=== PATIENT | male | born 1950 | race American Indian/Alaskan Native ===

== ENCOUNTER 2017-05-29 00:33 | Inpatient (IN) | payer BC, MEDICARE ==
[2017-05-29 01:17] LABS: Basophils % (Auto) 0.3 % (0.0-1.8); Hematocrit 42.5 % (35.5-45.6); Hemoglobin 13.7 gm/dl (11.8-15.2); Mean Corpuscular HGB Conc 32 % (32-34); Mean Corpuscular Hemoglobin 29 pg (28-32); Mean Corpuscular Volume 89 fl (84-94); Platelet Count 170 K/mm3 (140-440); Red Blood Count 4.78 M/mm3 (3.65-5.03); Red Cell Distribution Width 13.3 % (13.2-15.2); White Blood Count 9.2 K/mm3 (4.5-11.0)
[2017-05-29 01:42] LABS: Anion Gap 20 mmol/L; BUN/Creatinine Ratio 11; Blood Urea Nitrogen 15 mg/dL (9-20); Calcium 9.4 mg/dL (8.4-10.2); Carbon Dioxide 24 mmol/L (22-30); Chloride 101.5 mmol/L (98-107); Glucose 92 mg/dL (75-100); Potassium 4.7 mmol/L (3.6-5.0); Sodium 141 mmol/L (137-145)
--- NOTE | 2017-05-29 01:50 | XRay Report ---
FINAL REPORT EXAM: XR CHEST ROUTINE 2V HISTORY: chest pain, SOB, cough TECHNIQUE: PA and lateral views of the chest were submitted. FINDINGS: Heart size mediastinum appear normal. The lungs are clear. Pleural fluid is not seen. The bones and soft tissues reveal multilevel disc degeneration in the thoracic spine. IMPRESSION: No active chest disease.
[2017-05-29] MEDS ORDERED: NACL ONE (11:29)
[2017-05-29] MEDS ORDERED: HEPARIN 10,000 UNITS/10 ML IV ONE (11:34)
[2017-05-29] MEDS ORDERED: DULCOLAX PR PRN (11:38)
[2017-05-29] MEDS ORDERED: ZOFRAN IV PRN (11:38)
[2017-05-29] MEDS ORDERED: TYLENOL PO PRN (11:38)
[2017-05-29] MEDS ORDERED: PROVENTIL IH PRN (11:38)
[2017-05-29] MEDS ORDERED: MILK OF MAGNESIA PO PRN (11:38)
[2017-05-29 11:51] LABS: INR 1.08 (0.87-1.13); Partial Thromboplastin Time 30.7 Sec. (24.2-36.6)
--- NOTE | 2017-05-29 12:13 | Cat Scan Report ---
CTA chest: History: Chest pain, elevated d-dimer. Findings: No endobronchial or mediastinal mass. No mediastinal, hilar or axillary adenopathy. No pleural or pericardial effusion. Multiple defects identified in the distal main right and left pulmonary artery with extension to the upper lobe and lower lobe branches . The lung parenchyma appears unremarkable. No consolidation or mass. Impression: Extensive bilateral pulmonary emboli.
--- NOTE | 2017-05-29 12:19 | Emergency Department Report ---
ED General Adult HPI - General Chief complaint: Chest Pain Stated complaint: CP; SOB Time Seen by Provider: 05/29/17 11:16 Source: patient Mode of arrival: Ambulatory Limitations: No Limitations - History of Present Illness Initial comments: Patient states that he went to an emergency department in [place] on May 16 and had a Doppler for leg swelling. He describes the problem as starting in his right heel and moving into his ankle. He is a poor historian. However, it appears quite evident that he has had progressive leg swelling for now at 1-2 weeks. In the intervening time the patient states he has been "working out and doing cardio. By the he noted chest pain and shortness of breath on exertion. However he stated that he had still been doing an hour of cardio up until yesterday. Today he had an episode of recurrent chest pain and shortness of breath. At rest now he is not short of breath and his chest pain has resolved. He does have a report from the hospital in [place] indicating that he had superficial thrombophlebitis on 05/16/2017. He has no prior history of pulmonary embolism. He has no contraindications to anticoagulation. -: Gradual Location: chest, right Radiation: non-radiation Severity scale (0 -10): 7 Quality: other (tightness) Consistency: intermittent Improves with: none Worsens with: none Associated Symptoms: denies other symptoms Treatments Prior to Arrival: none - Related Data Allergies Allergy/AdvReac Type Severity Reaction Status Date / Time quinine Allergy Rash Verified 05/29/17 01:02 ED Review of Systems ROS: Stated complaint: CP; SOB Other details as noted in HPI Constitutional: denies: chills, fever Eyes: denies: eye pain, eye discharge, vision change ENT: denies: ear pain, throat pain Respiratory: shortness of breath. denies: cough, wheezing Cardiovascular: chest pain. denies: palpitations Endocrine: no symptoms reported Gastrointestinal: denies: abdominal pain, nausea, diarrhea Genitourinary: denies: urgency, dysuria Musculoskeletal: denies: back pain, joint swelling, arthralgia Skin: denies: rash, lesions Neurological: denies: headache, weakness, paresthesias Psychiatric: denies: anxiety, depression Hematological/Lymphatic: denies: easy bleeding, easy bruising ED Past Medical Hx - Past Medical History Previous Medical History?: Yes Additional medical history: Lower Leg swelling Apr 2017. 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 Absent: scleral icterus - ENT ENT exam: Present: mucous membranes moist - Neck Neck exam: Present: normal inspection. Absent: tenderness, meningismus - Respiratory Respiratory exam: Present: normal lung sounds bilaterally. Absent: respiratory distress - Cardiovascular Cardiovascular Exam: Present: regular rate, normal rhythm. Absent: systolic murmur, diastolic murmur, rubs, gallop - GI/Abdominal GI/Abdominal exam: Present: soft, normal bowel sounds. Absent: distended, tenderness, guarding, rebound, rigid - Rectal Rectal exam: Present: deferred - Extremities Exam Extremities exam: Present: other (the right leg is swollen to the popliteal fossa. The calf is not tight. There is no compartment signs. Distal pulses are 2+ and 2+ ankle and foot. There is a palpable cord extending into the thigh.) - Back Exam Back exam: Present: normal inspection - Neurological Exam Neurological exam: Present: alert, oriented X3 - Psychiatric Psychiatric exam: Present: normal affect, normal mood - Skin Skin exam: Present: warm, dry, intact, normal color. Absent: rash ED Course Vital Signs 05/29/17 05/29/17 05/29/17 00:36 04:08 10:46 Temperature 98.4 F 97.7 F 97.9 F Pulse Rate 91 H 79 77 Respiratory 20 16 18 Rate Blood Pressure 119/75 Blood Pressure 133/78 [Left] Blood Pressure 114/76 [Right] O2 Sat by Pulse 97 97 94 Oximetry - Reevaluation(s) Reevaluation #1: The patient was deemed very high probability for pulmonary embolism. He was empirically heparinized with heparin standard bolus and dose. A pulmonary angiogram did reveal bilateral distal and extensive Main pulmonary artery emboli. Findings discussed with Dr. Catalan the hospitalist who is already admitted the patient. Page out to Dr. Askew. 05/29/17 12:19 ED Medical Decision Making - Lab Data Result diagrams: 05/29/17 00:58 05/29/17 00:58 Laboratory Results - last 24 hr 05/29/17 05/29/17 05/29/17 00:58 00:58 00:58 WBC 9.2 RBC 4.78 Hgb 13.7 Hct 42.5 MCV 89 MCH 29 MCHC 32 RDW 13.3 Plt Count 170 Lymph % (Auto) 38.8 H [place] % (Auto) 10.8 H Eos % (Auto) 1.0 Baso % (Auto) 0.3 Lymph # 3.6 [place] # 1.0 H Eos # 0.1 Baso # 0.0 Seg Neutrophils % 49.1 Seg Neutrophils # 4.5 PT INR APTT D-Dimer Sodium 141 Potassium 4.7 Chloride 101.5 Carbon Dioxide 24 Anion Gap 20 BUN 15 Creatinine 1.4 Estimated GFR > 60 BUN/Creatinine Ratio 11 Glucose 92 Calcium 9.4 Troponin T < 0.010 NT-Pro-B Natriuret Pep 2078 H 05/29/17 05/29/17 05/29/17 01:04 04:06 08:07 WBC RBC Hgb Hct MCV MCH MCHC RDW Plt Count Lymph % (Auto) [place] % (Auto) Eos % (Auto) Baso % (Auto) Lymph # [place] # Eos # Baso # Seg Neutrophils % Seg Neutrophils # PT INR APTT D-Dimer > 75221 H Sodium Potassium Chloride Carbon Dioxide Anion Gap BUN Creatinine Estimated GFR BUN/Creatinine Ratio Glucose Calcium Troponin T < 0.010 < 0.010 NT-Pro-B Natriuret Pep 05/29/17 11:28 WBC RBC Hgb Hct MCV MCH MCHC RDW Plt Count Lymph % (Auto) [place] % (Auto) Eos % (Auto) Baso % (Auto) Lymph # [place] # Eos # Baso # Seg Neutrophils % Seg Neutrophils # PT 14.6 INR 1.08 APTT 30.7 D-Dimer Sodium Potassium Chloride Carbon Dioxide Anion Gap BUN Creatinine Estimated GFR BUN/Creatinine Ratio Glucose Calcium Troponin T NT-Pro-B Natriuret Pep - EKG Data -: EKG Interpreted by Me EKG shows normal: sinus rhythm, axis, intervals, QRS complexes, ST-T waves Rate: normal - EKG Data Interpretation: nonspecific ST-T wave martha - Radiology Data Radiology results: report reviewed Critical Care Time: Yes Critical care time in (mins) excluding proc time.: 50 Critical care attestation.: If time is entered above; I have spent that time in minutes in the direct care of this critically ill patient, excluding procedure time. ED Disposition Clinical Impression: Subacute massive pulmonary embolism Disposition: [id number] OP ADMIT IP TO THIS HOSP Is pt being admited?: Yes Does the pt Need Aspirin: No Condition: Stable Referrals: PARKER WILDER MD [Other] - 3-5 Days Time of Disposition: 12:21
--- NOTE | 2017-05-29 13:00 | Consultation ---
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 On May 19, patient reports that he had some chest pain and shortness of breath on exertion and now has shortness of breath with chest pain when he walks less than 30 feet which is incapacitating. At rest, he does not feel short of breath nor does he have chest pain. He denies history of hematemesis, hematuria, hematochezia, melena, any recent surgeries within the last year, or any injections at the last year. No prior history of thromboembolic event. CT scan demonstrates significant right heart strain with a right ventricle to left ventricle ratio of 1.4 (0.9 nl) which has been confirmed by echocardiography with a right ventricle mean pressure of aprox 55 per preliminary discussion with technologist. There is a right distal main pulmonary embolism with extension into the lobar pulmonary arteries and some segmental pulmonary arteries, and left-sided lobar pulmonary embolisms with extension into some segmental pulmonary arteries. Elevated BNP of approximately 2000. Past History Past Medical History: other (varicose veins) Past Surgical History: No surgical history Social history: alcohol abuse. denies: smoking, IV drug use Family history: no significant family history Medications and Allergies Allergies Allergy/AdvReac Type Severity Reaction Status Date / Time quinine Allergy Rash Verified 05/29/17 01:02 Active Meds: Active Medications Acetaminophen (Tylenol) 650 mg PO Q4H PRN PRN Reason: Pain MILD(1-3)/Fever >100.5/FLORES Albuterol (Proventil) 2.5 mg IH Q4HRT PRN PRN Reason: Shortness Of Breath Bisacodyl (Dulcolax) 10 mg [place] QDAY PRN PRN Reason: Constipation unrelieved by MOM Heparin Sodium/Sodium Chloride (Heparin/ 0.45% Nacl-25,000 Unit/500 Ml) 25,000 unit in 500 mls @ 29 mls/hr IV TITR RAJANI; 1,450 UNITS/HR PRN Reason: Protocol Magnesium Hydroxide (Milk Of Magnesia) 30 ml PO Q4H PRN PRN Reason: Constipation Ondansetron HCl (Zofran) 4 mg IV Q8H PRN PRN Reason: N/V unrelieved by Reglan Review of Systems All systems: negative (see HPI) Constitutional: no fever Exam - Constitutional Vitals: Temp Pulse Resp BP Pulse Ox 97.9 F 77 18 133/78 94 05/29/17 10:46 05/29/17 10:46 05/29/17 10:46 05/29/17 10:46 05/29/17 10:46 General appearance: Present: mild distress - EENT Eyes: Present: EOM intact ENT: hearing intact - Respiratory Respiratory effort: labored - Extremities Extremity abnormal: edema (right lower extremity) - Psychiatric Psychiatric: appropriate mood/affect, cooperative Results - Labs CBC & Chem 7: 05/29/17 00:58 05/29/17 00:58 Labs: Abnormal lab results 05/29/17 05/29/17 05/29/17 Range/Units 00:58 00:58 01:04 Lymph % (Auto) 38.8 H (13.4-35.0) % [place] % (Auto) 10.8 H (0.0-7.3) % [place] # 1.0 H (0.0-0.8) K/mm3 D-Dimer > 11425 H (0-234) ng/mlDDU NT-Pro-B Natriuret Pep 2078 H (0-900) pg/mL - Imaging and Cardiology CT scan - chest: report reviewed, image reviewed Venous US: image reviewed Assessment and Plan 66-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 Although he tolerates his pulmonary embolism thrombus load well at rest, with minimal exertion he become extremely symptomatic. His deep venous thrombus load is greater in the right lower extremity than the left lower extremity. No proximal DVT component. His pulmonary embolism risk is intermediate-high. His bleeding risk is overall low. I had a long discussion with the patient regarding options of catheter directed thrombolytic therapy vs anticoagulation alone which included the risks, benefits , and alternatives. The patient elected for catheter directed thrombolytics. NPO after MN Continue heparin drip Will bring down tomorrow for catheter directed thrombolytics in the pulmonary arteries
[2017-05-29] MEDS: HEPARIN/ 0.45% NACL-25,000 UNIT/500 ML 25,000 UNIT/500 ML BAG IV SCH (13:20)
--- NOTE | 2017-05-29 15:01 | History and Physical Report ---
History of Present Illness Date of admission: 05/29/17 11:38 Chief complaint: My right lig is swollen, and I cant breathe History of present illness: 66 YO Male with Varicose veins, Superficial thrombophlebitis presents to ED for evaluation. Pt states that he has experienced shortness of breath for the past 1 month with worsening symptoms over the past 10 days. the patient was diagnosed with Right -sided superficial thrombophlebitis of his greater saphenous vein 3 weeks ago. Pt acknowledges chest discomfort and shortness of breath on exertion as well as deep breathing. Pt states that he now has shortness of breath with chest discomfort when he walks, and only able to walk less than 30 feet without stopping due to shortness of breath. Pt denies fever, chills, Palpitations, NVD, Syncope, Hematemesis, hematuria, hematochezia, melena, or recent ill contacts. Pt seen and evaluated in ED and found to have right heart strain and CT Angio chest reveals bilateral PE. IR consulted in ED for EKOS therapy. Pt admitted to telemetry and placed on heparin drip. Past History Past Medical History: other (varicose veins, superficial thrombophlebitis) Past Surgical History: No surgical history, Other (reviewed) Social history: single. denies: smoking, alcohol abuse, prescription drug abuse Family history: no significant family history Medications and Allergies Allergies Allergy/AdvReac Type Severity Reaction Status Date / Time quinine Allergy Rash Verified 05/29/17 01:02 Active Meds: Active Medications Acetaminophen (Tylenol) 650 mg PO Q4H PRN PRN Reason: Pain MILD(1-3)/Fever >100.5/FLORES Albuterol (Proventil) 2.5 mg IH Q4HRT PRN PRN Reason: Shortness Of Breath Bisacodyl (Dulcolax) 10 mg [place] QDAY PRN PRN Reason: Constipation unrelieved by MOM Heparin Sodium/Sodium Chloride (Heparin/ 0.45% Nacl-25,000 Unit/500 Ml) 25,000 unit in 500 mls @ 29 mls/hr IV TITR RAJANI; 1,450 UNITS/HR PRN Reason: Protocol Last Admin: 05/29/17 13:20 Dose: 1,450 units/hr, 29 mls/hr Magnesium Hydroxide (Milk Of Magnesia) 30 ml PO Q4H PRN PRN Reason: Constipation Ondansetron HCl (Zofran) 4 mg IV Q8H PRN PRN Reason: N/V unrelieved by Reglan Review of Systems Constitutional: no weight loss, no weight gain, no fever, no chills Ears, nose, mouth and throat: no ear pain, no ear discharge, no tinnitis, no decreased hearing, no nose pain Cardiovascular: shortness of breath, dyspnea on exertion, leg edema, no chest pain Respiratory: shortness of breath, dyspnea on exertion, pleurisy, pain on inspiration Gastrointestinal: no abdominal pain, no nausea, no vomiting, no diarrhea Genitourinary Male: no dysuria, no hematuria, no flank pain, no discharge Rectal: no pain, no incontinence, no bleeding Musculoskeletal: no neck stiffness, no neck pain, no shooting arm pain, no arm numbness/tingling, no low back pain Integumentary: no rash, no pruritis, no redness, no sores Neurological: no head injury, no transient paralysis, no paralysis, no weakness , no parathesias, no numbness Psychiatric: no anxiety, no memory loss, no change in sleep habits, no sleep disturbances, no insomnia, no hypersomnia Endocrine: no cold intolerance, no heat intolerance, no polyphagia, no excessive thirst, no polydipsia Hematologic/Lymphatic: no easy bruising, no easy bleeding Allergic/Immunologic: no urticaria, no allergic rhinitis, no wheezing Exam - Constitutional Vitals: Temp Pulse Resp BP Pulse Ox 97.9 F 77 18 133/78 94 05/29/17 10:46 05/29/17 10:46 05/29/17 10:46 05/29/17 10:46 05/29/17 10:46 General appearance: Present: mild distress - EENT Eyes: Present: PERRL ENT: hearing intact, clear oral mucosa - Neck Neck: Present: supple, normal ROM - Respiratory Respiratory effort: normal Respiratory: bilateral: diminished, rhonchi - Cardiovascular Heart Sounds: Present: S1 & S2. Absent: rub, click - Extremities Extremities: pulses symmetrical, No edema Extremity abnormal: edema, erythema, tenderness, other (RLE ) Peripheral Pulses: within normal limits - Abdominal General gastrointestinal: Present: soft, non-tender, non-distended, normal bowel sounds Male genitourinary: Present: normal - Integumentary Integumentary: Present: clear, warm, dry - Musculoskeletal Musculoskeletal: gait normal, strength equal bilaterally - Psychiatric Psychiatric: appropriate mood/affect, intact judgment & insight - Neurologic Neurologic: CNII-XII intact, moves all extremities Results - Labs CBC & Chem 7: 05/29/17 00:58 05/29/17 00:58 Labs: Abnormal lab results 05/29/17 05/29/17 05/29/17 Range/Units 00:58 00:58 01:04 Lymph % (Auto) 38.8 H (13.4-35.0) % [place] % (Auto) 10.8 H (0.0-7.3) % [place] # 1.0 H (0.0-0.8) K/mm3 D-Dimer > 21753 H (0-234) ng/mlDDU NT-Pro-B Natriuret Pep 2078 H (0-900) pg/mL Assessment and Plan - Patient Problems (1) Subacute massive pulmonary embolism Current Visit: Yes Status: Acute Plan to address problem: Therapeutic Anticoagulation with heparin drip, IR consulted pending EKOS in AM, supplemental oxygen, nebulizer therpay, pain control (2) CHF (congestive heart failure) Current Visit: Yes Status: Suspected Qualifiers: Congestive heart failure type: systolic Congestive heart failure chronicity : acute Qualified Code(s): I50.21 - Acute systolic (congestive) heart failure Plan to address problem: Suspect secondary to right heart strain and PE, Echo, treat submassive PE (3) Acute respiratory failure Current Visit: Yes Status: Acute Qualifiers: Respiratory failure complication: hypoxia Qualified Code(s): J96.01 - Acute respiratory failure with hypoxia Plan to address problem: supplemental oxygen, nebs, incentive spirometry, supportive care, treat PE. (4) DVT prophylaxis Current Visit: Yes Status: Acute
[2017-05-30] MEDS ORDERED: MORPHINE IV PRN ×2 (02:16→10:04)
[2017-05-30] MEDS: HEPARIN/ 0.45% NACL-25,000 UNIT/500 ML 25,000 UNIT/500 ML BAG IV SCH (06:06)
[2017-05-30] MEDS ORDERED: NACL 0.9% 1000 ML 1,000 ML ONE ×2 (09:55→10:44)
[2017-05-30] MEDS ORDERED: HEPARIN/NS 5000 UNIT/500ML(CATH LAB) 1,000 ML IR ONE (09:55)
[2017-05-30] MEDS ORDERED: HEPARIN/ 0.45% NACL-25,000 UNIT/500 ML 25,000 UNIT/500 ML BAG ONE (09:55)
[2017-05-30] MEDS ORDERED: CATHFLO ONE ×2 (09:56→10:51)
[2017-05-30] MEDS ORDERED: WATER FOR INJ (PF) 10 ML ONE ×2 (09:57)
[2017-05-30] MEDS ORDERED: ZOFRAN IV PRN (10:04)
[2017-05-30] MEDS: SUBLIMAZE ONE ×2 (10:27→10:33)
[2017-05-30] MEDS: XYLOCAINE 2% INFILTRATI ONE ×2 (10:27→10:40)
[2017-05-30] MEDS: VERSED ONE ×2 (10:27→10:33)
[2017-05-30] MEDS: HEPARIN 10,000 UNITS/10 ML ONE ×3 (10:57→11:21)
[2017-05-30] MEDS ORDERED: HEPARIN/ 0.45% NACL-25,000 UNIT/500 ML 25,000 UNIT/500 ML BAG SHEATH SCH ×2 (11:00)
[2017-05-30] MEDS ORDERED: NACL 0.9% 1000 ML 1,000 ML SHEATH SCH ×2 (11:00)
[2017-05-30] MEDS ORDERED: NACL 0.9% 1000 ML 1,000 ML EKOSCLUMEN SCH ×2 (11:00)
[2017-05-30] MEDS ORDERED: NACL 0.9% 1000 ML 1,000 ML IV SCH (11:00)
[2017-05-30] MEDS: CATHFLO 10 MG in NACL 0.9% 250ML 250 ML EKOSDLUMEN SCH (11:27)
[2017-05-30] MEDS: CATHFLO 10 MG in NACL 0.9% 250ML 250 ML IV SCH (11:28)
[2017-05-30 11:40] LABS: Basophils % (Auto) 0.5 % (0.0-1.8); Eosinophils % (Auto) 0.7 % (0.0-4.3); Hematocrit 38.3 % (35.5-45.6); Hemoglobin 12.7 gm/dl (11.8-15.2); Mean Corpuscular HGB Conc 33 % (32-34); Mean Corpuscular Hemoglobin 29 pg (28-32); Mean Corpuscular Volume 88 fl (84-94); Platelet Count 157 K/mm3 (140-440); Red Blood Count 4.37 M/mm3 (3.65-5.03); White Blood Count 7.8 K/mm3 (4.5-11.0)
[2017-05-30 11:49] LABS: INR 1.12 (0.87-1.13)
[2017-05-30 11:52] LABS: Anion Gap 17 mmol/L; BUN/Creatinine Ratio 11; Blood Urea Nitrogen 13 mg/dL (9-20); Calcium 8.6 mg/dL (8.4-10.2); Carbon Dioxide 26 mmol/L (22-30); Glucose 85 mg/dL (75-100); Potassium 4.4 mmol/L (3.6-5.0); Sodium 139 mmol/L (137-145)
--- NOTE | 2017-05-30 12:00 | Operative Report ---
Operative Report Operative Report: EXAM: 1. Ultrasound guided access of the left common femoral vein 2. Ultrasound guided access of the left common femoral vein 3. Selection of the right atrium, right ventricle, main pulmonary artery, left main pulmonary artery, and left lobar pulmonary artery 4. Left upper and lower lobar pulmonary angiography 5. Selection and angiography of a segmental branch of the left lower lobar pulmonary artery 6. Fluoroscopic guided placement of a 106 cm x 12 cm infusion length EKOS thrombolytic catheter in the left lower lobar segmental pulmonary artery 7. Selection of the right atrium, right ventricle, main pulmonary artery, and right interlobar pulmonary artery 8. Right interlobar pulmonary angiography 9. Selection of the right lower lobar pulmonary artery and a segmental branch of the right lower lobar pulmonary artery 10. Angiography of a segmental branch of the right lower lobar pulmonary artery 11. Fluoroscopic guided placement of a 106 cm x 12 cm infusion length EKOS thrombolytic catheter in the right lower lobar segmental pulmonary artery DATE: 05/30/17 PAPER RECLAIMING MACHINE OPERATOR: MARTHA FISH MD INDICATION: Submassive pulmonary embolism with right heart strain on CT with shortness of breath and elevated BNP. MEDICATIONS: Continuous cardiopulmonary monitoring was performed during this procedure. Please see nursing report for full details. DEVICES: 12 cm x 106 cm EKOS catheter placement in the left lower lobe segmental pulmonary artery 12 cm x 106 cm EKOS catheter placement in the right lower lobe segmental pulmonary artery CONTRAST: Please see nursing report. PROCEDURE: The risks, benefits, and alternatives were discussed; written informed consent was obtained. The patient was prepped and draped in a sterile fashion and both groins were prepped and draped in a sterile fashion. The left common femoral vein was patent on ultrasound evaluation. The left common femoral vein was assessed under ultrasound guidance, and a 21- gauge micropuncture needle was advanced into the left common femoral vein. 0.018 inch wire was advanced into the needle and into the inferior vena cava. Needle was exchanged for micropuncture transitional dilator. The left common femoral vein was assessed again under ultrasound guidance, and a 21-gauge micropuncture needle was advanced into the left common femoral vein. 0.018 inch wire was advanced into the needle and into the inferior vena cava. Needle was exchanged for micropuncture transitional dilator. Both access sites were then exchanged for 6 [place] sheaths after 0.035 wire were passed into the inferior vena cava. Through the first left-sided sheath, a JR4 catheter was advanced over the Bentson wire and was used to successfully cannulated the right atrium. Then the catheter was used to select the right ventricle. Catheter was then used to select the main pulmonary artery. The catheter was then used to select the left main pulmonary artery and the upper lower lobe lobar pulmonary artery. Digital angiography was performed demonstrating a nonocclusive thrombus in the lobar pulmonary artery with segmental extension. The left main was selected demonstrating inflow artifact without a saddle pulmonary embolism. Catheter was exchanged for a vertebral catheter and the left lower lobar pulmonary artery was then selected. Digital angiography was performed demonstrating a nonocclusive thrombus in the distal left lobar artery. Angiography was repeated at multiple positions in the left lobar pulmonary artery demonstrating a large nearly occlusive thrombus in the proximal left lobar artery with some segmentals with nonocclusive thrombus, and subsegmental arteries which were patent. The segmental arteries with nonocclusive thrombus were selected and angiography was performed confirming position. [place] wire was advanced into the vessel and catheter was exchanged for a 6 [place] EKOS thrombolytic catheter. Wire was then exchanged for the EKOS wire. Contrast was injected to the thrombolytic catheter confirming placement in a segmental branch of the left lower lobe pulmonary artery. Thrombolytic catheter was flushed with saline. EKOS catheter was primed with 4 mg of TPA. This sheath was flushed and then primed with 1500 units of heparin. Through the second left-sided sheath, a JR4 catheter was advanced over the Bentson wire and was used to successfully cannulated the right atrium. Then the catheter was used to select the right ventricle. Catheter was then used to select the main pulmonary artery. The catheter was then used to select the right middle and lower interlobar pulmonary artery. Digital angiography was performed demonstrating a large near occlusive thrombus in the right lobar pulmonary arteries extending into the middle and lower lobar vessels. The segmental vessels were then selected demonstrating some which were patent, and some which had nonocclusive thrombus. The catheter was then used to select the right lower lobe lobar branch and then a segmental branch with nonocclusive thrombus. Digital angiography was performed confirming placement in a segmental branch of the right lower lobar pulmonary artery. [place] wire was advanced into the vessel and catheter was exchanged for a 6 [place] EKOS thrombolytic catheter. Wire was then exchanged for the EKOS wire. Contrast was injected to the thrombolytic catheter confirming placement in a segmental branch of the left lower lobe pulmonary artery. Thrombolytic catheter was flushed with saline. EKOS catheter was primed with 4 mg of TPA. This sheath was flushed and then primed with 1500 units of heparin. EKOS catheters were secured in 2-0 Ethilon sutures were used to secure this sheath. Steri-Strips were used to connect the catheters with the sheaths. The EKOS catheters were secured in a sterile fashion with multiple Tegaderms and 4 x 4's. FINDINGS: 1. Please see procedure note above IMPRESSION: Successful pulmonary angiograms and pulmonary artery selections for thrombolytic therapy. Successful placement of EKOS catheters in the right lower lobe segmental/ subsegmental pulmonary artery and left lower lobe segmental/subsegmental pulmonary artery.
--- NOTE | 2017-05-30 15:04 | Vascular Lab Report ---
LOWER EXTREMITY VENOUS DUPLEX: REASON FOR EXAM: Deep venous thrombosis. COMMENTS ON THE RIGHT: There is an acute occlusive deep venous thrombus in the right femoral vein extending from the femoral vein origin into the popliteal vein and into the proximal tibial veins and peroneal veins. There is a thrombosed superficial venous varicosity in the right mid calf. The remaining veins visualized are freely compressible without evidence of internal echogenicity. Spontaneous and phasic flow is diminished proximally. COMMENTS ON THE LEFT: There is an acute occlusive deep venous thrombus in the left lower femoral vein with extension into the popliteal vein and into the proximal tibial veins. The remaining veins visualized are freely compressible without evidence of internal echogenicity. Spontaneous and phasic flow is diminished proximally. IMPRESSION: Bilateral lower extremity acute deep venous thrombosis. Right midcalf superficial venous thrombus in a mid calf varicosity.
[2017-05-30 16:00] LABS: Basophils % (Auto) 0.4 % (0.0-1.8); Hemoglobin 13.7 gm/dl (11.8-15.2); Mean Corpuscular HGB Conc 33 % (32-34); Mean Corpuscular Hemoglobin 30 pg (28-32); Mean Corpuscular Volume 89 fl (84-94); Platelet Count 155 K/mm3 (140-440); Red Blood Count 4.62 M/mm3 (3.65-5.03); White Blood Count 8.2 K/mm3 (4.5-11.0)
--- NOTE | 2017-05-30 16:32 | Consultation ---
History of Present Illness Consult date: 05/30/17 Reason for consult: dyspnea History of present illness: 66 YO Male with Varicose veins, Superficial thrombophlebitis presents to ED for evaluation. Pt states that he has experienced shortness of breath for the past 1 month with worsening symptoms over the past 10 days. the patient was diagnosed with Right -sided superficial thrombophlebitis of his greater saphenous vein 3 weeks ago. Pt acknowledges chest discomfort and shortness of breath on exertion as well as deep breathing. Pt states that he now has shortness of breath with chest discomfort when he walks, and only able to walk less than 30 feet without stopping due to shortness of breath. Pt denies fever, chills, Palpitations, NVD, Syncope, Hematemesis, hematuria, hematochezia, melena, or recent ill contacts. Pt seen and evaluated in ED and found to have right heart strain and CT Angio chest reveals bilateral PE. IR consulted in ED for EKOS therapy. Pt admitted to ICU post EKOS. Past History Past Medical History: other (varicose veins, superficial thrombophlebitis) Past Surgical History: No surgical history, Other (reviewed) Social history: single. denies: smoking, alcohol abuse, prescription drug abuse Family history: no significant family history Medications and Allergies Allergies Allergy/AdvReac Type Severity Reaction Status Date / Time quinine Allergy Rash Verified 05/29/17 01:02 Home Medications Medication Instructions Recorded Confirmed Last Taken Type Reumofan Plus 1 tab PO PRN 05/29/17 Unknown History Active Meds: Active Medications Acetaminophen (Tylenol) 650 mg PO Q4H PRN PRN Reason: Pain MILD(1-3)/Fever >100.5/FLORES Acetaminophen/Hydrocodone Bitart ([place] 5/325) 2 each PO Q6H PRN PRN Reason: Pain, Moderate (4-6) Albuterol (Proventil) 2.5 mg IH Q4HRT PRN PRN Reason: Shortness Of Breath Bisacodyl (Dulcolax) 10 mg MT QDAY PRN PRN Reason: Constipation unrelieved by MOM Alteplase, Recombinant 10 mg/ (Sodium Chloride) 250 mls @ 10 mls/hr EKOSDLUMEN DIRECT RAJANI Last Admin: 05/30/17 11:27 Dose: 0 mls Alteplase, Recombinant 10 mg/ (Sodium Chloride) 250 mls @ 10 mls/hr IV DIRECT RAJANI Last Admin: 05/30/17 11:28 Dose: 0 mls Heparin Sodium/Sodium Chloride (Heparin/ 0.45% Nacl-25,000 Unit/500 Ml) 25,000 unit in 500 mls @ 10 mls/hr SHEATH DIRECT RAJANI; 500 UNITS/HR PRN Reason: Protocol Last Admin: 05/30/17 11:27 Dose: 0 mls Heparin Sodium/Sodium Chloride (Heparin/ 0.45% Nacl-25,000 Unit/500 Ml) 25,000 unit in 500 mls @ 10 mls/hr SHEATH DIRECT RAJANI; 500 UNITS/HR PRN Reason: Protocol Last Admin: 05/30/17 11:27 Dose: 0 mls Sodium Chloride (Nacl 0.9% 1000 Ml) 1,000 mls @ 30 mls/hr IV DIRECT RAJANI Sodium Chloride (Nacl 0.9% 1000 Ml) 1,000 mls @ 30 mls/hr SHEATH DIRECT RAJANI Last Admin: 05/30/17 11:26 Dose: 0 mls Sodium Chloride (Nacl 0.9% 1000 Ml) 1,000 mls @ 35 mls/hr EKOSCLUMEN DIRECT RAJANI Sodium Chloride (Nacl 0.9% 1000 Ml) 1,000 mls @ 30 mls/hr SHEATH DIRECT RAJANI Last Admin: 05/30/17 11:26 Dose: 0 mls Sodium Chloride (Nacl 0.9% 1000 Ml) 1,000 mls @ 35 mls/hr EKOSCLUMEN DIRECT RAJANI Magnesium Hydroxide (Milk Of Magnesia) 30 ml PO Q4H PRN PRN Reason: Constipation Morphine Sulfate (Morphine) 2 mg IV Q4H PRN PRN Reason: Pain, Moderate (4-6) Morphine Sulfate (Morphine) 4 mg IV Q4H PRN PRN Reason: Pain , Severe (7-10) Ondansetron HCl (Zofran) 4 mg IV Q8H PRN PRN Reason: Nausea And Vomiting Review of Systems Cardiovascular: shortness of breath, dyspnea on exertion Musculoskeletal: other (right lower extremity discomfort) Physical Examination Vital signs: Vital Signs Temp Pulse Resp BP Pulse Ox 98.4 F 91 H 20 114/76 97 05/29/17 00:36 05/29/17 00:36 05/29/17 00:36 05/29/17 00:36 05/29/17 00:36 General appearance: no acute distress, alert, other (muscular well-built) ENT: other (severely crowded oropharynx Mallampati class IV) Neck: supple, no JVD Ascultation: Bilateral: clear Cardiovascular: regular rate and rhythm Gastrointestinal: normoactive bowel sounds, soft, non-tender Integumentary: normal Extremities: other (EKOS catheter) Musculoskeletal: no deformities normal mental status, non-focal exam Results - Laboratory Findings CBC and BMP: 05/30/17 15:42 05/30/17 11:14 PT/INR, D-dimer PT 15.0 Sec. (12.2-14.9) H 05/30/17 11:14 INR 1.12 (0.87-1.13) 05/30/17 11:14 D-Dimer > 85603 ng/mlDDU (0-234) H 05/29/17 01:04 Abnormal lab findings: Abnormal Labs 05/29/17 05/29/17 05/29/17 00:58 00:58 01:04 RDW Lymph % (Auto) 38.8 H [place] % (Auto) 10.8 H [place] # 1.0 H PT APTT Fibrinogen D-Dimer > 86623 H NT-Pro-B Natriuret Pep 2078 H 05/30/17 05/30/17 05/30/17 11:14 11:14 15:42 RDW 13.0 L 13.0 L Lymph % (Auto) [place] % (Auto) 9.5 H 9.6 H [place] # PT 15.0 H APTT 198.0 H* Fibrinogen D-Dimer NT-Pro-B Natriuret Pep 05/30/17 15:42 RDW Lymph % (Auto) [place] % (Auto) [place] # PT APTT Fibrinogen 526 H D-Dimer NT-Pro-B Natriuret Pep - Diagnostic Findings Chest x-ray: report reviewed (multiple bilateral pulmonary emboli) CT scan - chest: report reviewed U/S of Legs: report reviewed (bilateral DVT) Assessment and Plan Impression: Bilateral extensive pulmonary embolism Bilateral lower extremity DVT Acute pulmonary hypertension secondary to pulmonary embolism Body habitus suspicious of sleep apnea syndrome Recommendation: Continue with EKOS Anticoagulation for next 6-12 months Total critical care time 33 minutes
[2017-05-30] MEDS: NORCO 5/325 PO PRN (16:37)
[2017-05-30 20:36] LABS: Basophils % (Auto) 0.5 % (0.0-1.8); Eosinophils % (Auto) 1.3 % (0.0-4.3); Hematocrit 38.8 % (35.5-45.6); Hemoglobin 13.1 gm/dl (11.8-15.2); Mean Corpuscular HGB Conc 34 % (32-34); Mean Corpuscular Hemoglobin 30 pg (28-32); Mean Corpuscular Volume 88 fl (84-94); Platelet Count 148 K/mm3 (140-440); Red Blood Count 4.41 M/mm3 (3.65-5.03); Red Cell Distribution Width 12.9 % (13.2-15.2); White Blood Count 7.8 K/mm3 (4.5-11.0)
--- NOTE | 2017-05-30 20:49 | Progress Note ---
Assessment and Plan Assessment and plan: 66 YO Male with Varicose veins, Superficial thrombophlebitis presents to ED for evaluation. Pt states that he has experienced shortness of breath for the past 1 month with worsening symptoms over the past 10 days. the patient was diagnosed with Right -sided superficial thrombophlebitis of his greater saphenous vein 3 weeks ago. Pt acknowledges chest discomfort and shortness of breath on exertion as well as deep breathing. Pt states that he now has shortness of breath with chest discomfort when he walks, and only able to walk less than 30 feet without stopping due to shortness of breath. Pt denies fever, chills, Palpitations, NVD, Syncope, Hematemesis, hematuria, hematochezia, melena, or recent ill contacts. Pt seen and evaluated in ED and found to have right heart strain and CT Angio chest reveals bilateral PE. IR consulted in ED for EKOS therapy. Pt admitted to telemetry and placed on heparin drip. (1) Subacute massive pulmonary embolism with heart strain Therapeutic Anticoagulation with heparin drip, EKOS initiated s.p thrombolytic therapy, supplemental oxygen, nebulizer therpay, pain control (2) Acute Diastolic CHF (congestive heart failure) Suspect secondary to right heart strain and PE, Echo, treat submassive PE (3) Acute respiratory failure supplemental oxygen, nebs, incentive spirometry, supportive care, treat PE. (4) Acute Pulmonary Hypertension Secondary to Pulmonary Embolism Anticipate improvement following thrombolysis (5) DVT prophylaxis Current Visit: Yes Status: Acute History Interval history: Patient seen and examined, lying comfortable in the ICU, denies any chest pain, nausea, vomiting. reports some abdominal pain but improving according to patient since admission. Hospitalist Physical - Physical exam Narrative exam: General appearance: Present: in no acute distress - EENT Eyes: Present: PERRL ENT: hearing intact, clear oral mucosa - Neck Neck: Present: supple, normal ROM - Respiratory Respiratory effort: normal Respiratory: bilateral: diminished - Cardiovascular Heart Sounds: Present: S1 & S2. Absent: rub, click - Extremities Extremities: pulses symmetrical, No edema Extremity abnormal: edema, erythema, tenderness, other (RLE ) Peripheral Pulses: within normal limits - Abdominal General gastrointestinal: Present: soft, non-tender, non-distended, normal bowel sounds Male genitourinary: Present: normal - Integumentary Integumentary: Present: clear, warm, dry - Musculoskeletal Musculoskeletal: gait normal, strength equal bilaterally - Psychiatric Psychiatric: appropriate mood/affect, intact judgment & insight - Neurologic Neurologic: CNII-XII intact, moves all extremities - Constitutional Vitals: Temp Pulse Resp BP Pulse Ox 98.2 F 84 21 120/80 95 05/30/17 19:40 05/30/17 19:30 05/30/17 19:30 05/30/17 19:30 05/30/17 19:51 General appearance: Present: mild distress Results - Labs CBC & Chem 7: 05/31/17 03:20 05/31/17 03:20 Labs: Laboratory Last Values WBC 8.2 K/mm3 (4.5-11.0) 05/30/17 15:42 RBC 4.62 M/mm3 (3.65-5.03) 05/30/17 15:42 Hgb 13.7 gm/dl (11.8-15.2) 05/30/17 15:42 Hct 41.0 % (35.5-45.6) 05/30/17 15:42 MCV 89 fl (84-94) 05/30/17 15:42 MCH 30 pg (28-32) 05/30/17 15:42 MCHC 33 % (32-34) 05/30/17 15:42 RDW 13.0 % (13.2-15.2) L 05/30/17 15:42 Plt Count 155 K/mm3 (140-440) 05/30/17 15:42 Lymph % (Auto) 28.6 % (13.4-35.0) 05/30/17 15:42 [place] % (Auto) 9.6 % (0.0-7.3) H 05/30/17 15:42 Eos % (Auto) 1.0 % (0.0-4.3) 05/30/17 15:42 Baso % (Auto) 0.4 % (0.0-1.8) 05/30/17 15:42 Lymph # 2.3 K/mm3 (1.2-5.4) 05/30/17 15:42 [place] # 0.8 K/mm3 (0.0-0.8) 05/30/17 15:42 Eos # 0.1 K/mm3 (0.0-0.4) 05/30/17 15:42 Baso # 0.0 K/mm3 (0.0-0.1) 05/30/17 15:42 Seg Neutrophils % 60.4 % (40.0-70.0) 05/30/17 15:42 Seg Neutrophils # 4.9 K/mm3 (1.8-7.7) 05/30/17 15:42 PT 15.0 Sec. (12.2-14.9) H 05/30/17 11:14 INR 1.12 (0.87-1.13) 05/30/17 11:14 APTT 198.0 Sec. (24.2-36.6) H* 05/30/17 11:14 Fibrinogen 526 mg/dl (211-480) H 05/30/17 15:42 D-Dimer > 07433 ng/mlDDU (0-234) H 05/29/17 01:04 Heparin Anti-Xa Level 0.33 U.I./ml (0.3-0.7) 05/30/17 15:42 Sodium 139 mmol/L (137-145) 05/30/17 11:14 Potassium 4.4 mmol/L (3.6-5.0) 05/30/17 11:14 Chloride 100.0 mmol/L (98-107) 05/30/17 11:14 Carbon Dioxide 26 mmol/L (22-30) 05/30/17 11:14 Anion Gap 17 mmol/L 05/30/17 11:14 BUN 13 mg/dL (9-20) 05/30/17 11:14 Creatinine 1.2 mg/dL (0.8-1.5) 05/30/17 11:14 Estimated GFR > 60 ml/min 05/30/17 11:14 BUN/Creatinine Ratio 11 % 05/30/17 11:14 Glucose 85 mg/dL (75-100) 05/30/17 11:14 Calcium 8.6 mg/dL (8.4-10.2) 05/30/17 11:14 Troponin T < 0.010 ng/mL (0.00-0.029) 05/29/17 08:07 NT-Pro-B Natriuret Pep 2078 pg/mL (0-900) H 05/29/17 00:58 Blood Type B NEGATIVE 05/30/17 11:14 Antibody Screen Negative 05/30/17 11:14
[2017-05-31] MEDS: NORCO 5/325 PO PRN ×3 (00:31→18:44)
[2017-05-31 03:41] LABS: Basophils % (Auto) 0.5 % (0.0-1.8); Eosinophils % (Auto) 2.3 % (0.0-4.3); Hematocrit 39.2 % (35.5-45.6); Hemoglobin 13.1 gm/dl (11.8-15.2); Mean Corpuscular HGB Conc 34 % (32-34); Mean Corpuscular Hemoglobin 30 pg (28-32); Mean Corpuscular Volume 88 fl (84-94); Platelet Count 145 K/mm3 (140-440); Red Blood Count 4.45 M/mm3 (3.65-5.03); Red Cell Distribution Width 12.9 % (13.2-15.2); White Blood Count 6.9 K/mm3 (4.5-11.0)
[2017-05-31 04:02] LABS: Anion Gap 18 mmol/L; BUN/Creatinine Ratio 14; Blood Urea Nitrogen 14 mg/dL (9-20); Calcium 8.4 mg/dL (8.4-10.2); Carbon Dioxide 24 mmol/L (22-30); Chloride 97.5 mmol/L (98-107); Glucose 96 mg/dL (75-100); Potassium 4.3 mmol/L (3.6-5.0); Sodium 135 mmol/L (137-145)
[2017-05-31] MEDS: CATHFLO 10 MG in NACL 0.9% 250ML 250 ML EKOSDLUMEN SCH (10:29)
[2017-05-31] MEDS: CATHFLO 10 MG in NACL 0.9% 250ML 250 ML IV SCH (10:45)
[2017-05-31] MEDS: ELIQUIS PO SCH ×2 (12:34→21:01)
--- NOTE | 2017-05-31 12:48 | Progress Note ---
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 Status post thrombolytic therapy to the pulmonary arteries. The thrombolytic catheters removed at bedside. Discussed plan with nurse. The patient will be started on Eliquis 10 mg PO BID , and in 2 hrs the venous sheaths can be removed. Patient will then need to be supine for 4 hours. Afterwards, patient can ambulate as needed and be transferred out of the ICU. Eliquis 10 mg PO BID x 1 week, then Eliquis 5 mg PO BID afterwards. Time course per pulmonology. Subjective Date of service: 05/31/17 Interval history: Tolerated pulmonary artery thrombolysis without issue. Breathing well. Objective - Constitutional Vitals: Vital Signs - 12hr 05/31/17 05/31/17 05/31/17 00:50 01:00 01:10 Temperature Pulse Rate 78 76 73 Respiratory 19 16 17 Rate Blood Pressure 114/71 114/71 116/71 O2 Sat by Pulse 96 90 92 Oximetry 05/31/17 05/31/17 05/31/17 01:20 01:30 01:41 Temperature Pulse Rate 74 75 75 Respiratory 14 15 15 Rate Blood Pressure 111/64 111/64 111/64 O2 Sat by Pulse 94 93 93 Oximetry 05/31/17 05/31/17 05/31/17 01:51 02:00 02:11 Temperature Pulse Rate 74 73 73 Respiratory 14 14 14 Rate Blood Pressure 104/64 103/66 118/49 O2 Sat by Pulse 95 94 94 Oximetry 05/31/17 05/31/17 05/31/17 02:21 02:30 02:41 Temperature Pulse Rate 74 75 67 Respiratory 15 13 16 Rate Blood Pressure 102/68 105/64 105/64 O2 Sat by Pulse 94 94 93 Oximetry 05/31/17 05/31/17 05/31/17 02:51 03:00 03:10 Temperature Pulse Rate 69 71 71 Respiratory 16 14 15 Rate Blood Pressure 106/68 109/71 109/71 O2 Sat by Pulse 97 96 92 Oximetry 05/31/17 05/31/17 05/31/17 03:20 03:30 03:38 Temperature 98.1 F Pulse Rate 75 71 Respiratory 20 16 Rate Blood Pressure 106/68 112/73 O2 Sat by Pulse 96 95 Oximetry 05/31/17 05/31/17 05/31/17 03:40 03:50 04:00 Temperature Pulse Rate 71 70 69 Respiratory 16 17 16 Rate Blood Pressure 112/73 115/73 115/73 O2 Sat by Pulse 95 95 94 Oximetry 05/31/17 05/31/17 05/31/17 04:10 04:20 04:30 Temperature Pulse Rate 70 70 73 Respiratory 14 15 14 Rate Blood Pressure 106/71 112/70 112/70 O2 Sat by Pulse 94 94 95 Oximetry 05/31/17 05/31/17 05/31/17 04:40 04:50 05:00 Temperature Pulse Rate 69 68 70 Respiratory 12 15 16 Rate Blood Pressure 109/71 116/74 116/74 O2 Sat by Pulse 97 95 92 Oximetry 05/31/17 05/31/17 05/31/17 05:10 05:20 05:23 Temperature Pulse Rate 70 72 Respiratory 15 17 16 Rate Blood Pressure 121/74 111/72 O2 Sat by Pulse 93 95 98 Oximetry 05/31/17 05/31/17 05/31/17 05:30 05:41 05:51 Temperature Pulse Rate 70 70 71 Respiratory 18 18 15 Rate Blood Pressure 115/74 115/74 116/74 O2 Sat by Pulse 95 93 94 Oximetry 05/31/17 05/31/17 05/31/17 06:00 06:11 06:21 Temperature Pulse Rate 72 71 74 Respiratory 15 16 14 Rate Blood Pressure 115/78 115/78 116/72 O2 Sat by Pulse 96 95 96 Oximetry 05/31/17 05/31/17 05/31/17 06:30 06:40 06:50 Temperature Pulse Rate 73 71 71 Respiratory 16 18 15 Rate Blood Pressure 116/72 117/71 116/72 O2 Sat by Pulse 95 92 94 Oximetry 05/31/17 05/31/17 05/31/17 07:00 07:10 07:20 Temperature Pulse Rate 71 70 73 Respiratory 16 14 16 Rate Blood Pressure 116/72 115/73 115/80 O2 Sat by Pulse 95 96 95 Oximetry 05/31/17 05/31/17 05/31/17 07:30 07:40 07:50 Temperature Pulse Rate 72 71 74 Respiratory 17 16 18 Rate Blood Pressure 115/80 126/79 126/79 O2 Sat by Pulse 95 94 94 Oximetry 05/31/17 05/31/17 05/31/17 08:00 08:10 08:20 Temperature 97.8 F Pulse Rate 73 74 76 Respiratory 12 18 14 Rate Blood Pressure 126/79 122/75 139/77 O2 Sat by Pulse 97 95 96 Oximetry 05/31/17 05/31/17 05/31/17 08:30 08:40 08:52 Temperature Pulse Rate 77 72 Respiratory 17 19 Rate Blood Pressure 122/75 124/77 O2 Sat by Pulse 96 94 94 Oximetry General appearance: Present: no acute distress - EENT Eyes: EOM intact ENT: hearing intact - Respiratory Respiratory effort: normal Extremities: normal temperature, normal color Extremity abnormal: other (bandaged left leg thrombolytic catheters) - Gastrointestinal General gastrointestinal: Present: soft - Psychiatric Psychiatric: appropriate mood/affect, cooperative - Labs CBC & Chem 7: 05/31/17 03:20 05/31/17 03:20 Labs: Abnormal lab results 05/30/17 05/30/17 05/30/17 Range/Units 15:42 15:42 21:15 RDW 13.0 L 12.9 L (13.2-15.2) % [place] % (Auto) 9.6 H 8.9 H (0.0-7.3) % Fibrinogen 526 H (211-480) mg/dl Heparin Anti-Xa Level (0.3-0.7) U.I./ml Sodium (137-145) mmol/L Chloride (98-107) mmol/L 05/30/17 05/31/17 05/31/17 Range/Units 21:15 03:20 03:20 RDW 12.9 L (13.2-15.2) % [place] % (Auto) 10.9 H (0.0-7.3) % Fibrinogen 532 H 532 H (211-480) mg/dl Heparin Anti-Xa Level 0.26 L 0.19 L (0.3-0.7) U.I./ml Sodium (137-145) mmol/L Chloride (98-107) mmol/L 05/31/17 Range/Units 03:20 RDW (13.2-15.2) % [place] % (Auto) (0.0-7.3) % Fibrinogen (211-480) mg/dl Heparin Anti-Xa Level (0.3-0.7) U.I./ml Sodium 135 L (137-145) mmol/L Chloride 97.5 L (98-107) mmol/L
--- NOTE | 2017-05-31 16:20 | Progress Note ---
Assessment and Plan Impression: Bilateral extensive pulmonary embolism Bilateral lower extremity DVT Acute pulmonary hypertension secondary to pulmonary embolism Body habitus suspicious of sleep apnea syndrome Recommendation: EKOS discontinued per vascular Anticoagulation for next 6-12 months with Eliquis Possible transfer out of ICU Consider repeat echo in few days Total critical care time 31 minutes Subjective Date of service: 05/31/17 Interval history: Patient doing quite well, denied any shortness of breath, no hemoptysis no chest pain. On EKOS Objective Vital Signs - 12hr 05/31/17 05/31/17 05/31/17 04:20 04:30 04:40 Temperature Pulse Rate 70 73 69 Respiratory 15 14 12 Rate Blood Pressure 112/70 112/70 109/71 O2 Sat by Pulse 94 95 97 Oximetry 05/31/17 05/31/17 05/31/17 04:50 05:00 05:10 Temperature Pulse Rate 68 70 70 Respiratory 15 16 15 Rate Blood Pressure 116/74 116/74 121/74 O2 Sat by Pulse 95 92 93 Oximetry 05/31/17 05/31/17 05/31/17 05:20 05:23 05:30 Temperature Pulse Rate 72 70 Respiratory 17 16 18 Rate Blood Pressure 111/72 115/74 O2 Sat by Pulse 95 98 95 Oximetry 05/31/17 05/31/17 05/31/17 05:41 05:51 06:00 Temperature Pulse Rate 70 71 72 Respiratory 18 15 15 Rate Blood Pressure 115/74 116/74 115/78 O2 Sat by Pulse 93 94 96 Oximetry 05/31/17 05/31/17 05/31/17 06:11 06:21 06:30 Temperature Pulse Rate 71 74 73 Respiratory 16 14 16 Rate Blood Pressure 115/78 116/72 116/72 O2 Sat by Pulse 95 96 95 Oximetry 05/31/17 05/31/17 05/31/17 06:40 06:50 07:00 Temperature Pulse Rate 71 71 71 Respiratory 18 15 16 Rate Blood Pressure 117/71 116/72 116/72 O2 Sat by Pulse 92 94 95 Oximetry 05/31/17 05/31/17 05/31/17 07:10 07:20 07:30 Temperature Pulse Rate 70 73 72 Respiratory 14 16 17 Rate Blood Pressure 115/73 115/80 115/80 O2 Sat by Pulse 96 95 95 Oximetry 12/25/17 12/25/17 12/25/17 07:40 07:50 08:00 Temperature 97.8 F Pulse Rate 71 74 73 Respiratory 16 18 12 Rate Blood Pressure 126/79 126/79 126/79 O2 Sat by Pulse 94 94 97 Oximetry 05/31/17 05/31/17 05/31/17 08:10 08:20 08:30 Temperature Pulse Rate 74 76 77 Respiratory 18 14 17 Rate Blood Pressure 122/75 139/77 122/75 O2 Sat by Pulse 95 96 96 Oximetry 05/31/17 05/31/17 05/31/17 08:40 08:50 08:52 Temperature Pulse Rate 72 72 Respiratory 19 17 Rate Blood Pressure 124/77 121/76 O2 Sat by Pulse 94 93 94 Oximetry 05/31/17 05/31/17 05/31/17 09:00 09:10 09:20 Temperature Pulse Rate 73 71 74 Respiratory 14 12 15 Rate Blood Pressure 108/75 108/75 114/72 O2 Sat by Pulse 94 93 92 Oximetry 05/31/17 05/31/17 05/31/17 09:30 09:40 09:50 Temperature Pulse Rate 71 71 71 Respiratory 13 16 14 Rate Blood Pressure 114/72 112/66 120/69 O2 Sat by Pulse 92 94 95 Oximetry 05/31/17 05/31/17 05/31/17 10:00 10:10 10:20 Temperature Pulse Rate 69 70 70 Respiratory 15 14 13 Rate Blood Pressure 106/66 106/66 110/69 O2 Sat by Pulse 95 93 93 Oximetry 05/31/17 05/31/17 05/31/17 10:30 10:40 10:50 Temperature Pulse Rate 71 75 71 Respiratory 17 16 14 Rate Blood Pressure 110/69 136/43 135/75 O2 Sat by Pulse 95 95 95 Oximetry 05/31/17 05/31/17 05/31/17 11:00 11:10 11:20 Temperature Pulse Rate 72 70 70 Respiratory 15 14 18 Rate Blood Pressure 121/74 121/74 119/77 O2 Sat by Pulse 91 95 94 Oximetry 05/31/17 05/31/17 05/31/17 11:30 11:40 11:50 Temperature Pulse Rate 72 70 68 Respiratory 16 18 19 Rate Blood Pressure 119/77 123/77 120/82 O2 Sat by Pulse 96 96 96 Oximetry 05/31/17 05/31/17 05/31/17 12:00 12:10 12:20 Temperature Pulse Rate 81 71 72 Respiratory 13 24 13 Rate Blood Pressure 120/84 120/84 127/82 O2 Sat by Pulse 96 96 97 Oximetry 05/31/17 05/31/17 05/31/17 12:30 12:40 12:50 Temperature Pulse Rate 77 81 78 Respiratory 15 15 22 Rate Blood Pressure 127/82 135/81 143/87 O2 Sat by Pulse 96 95 96 Oximetry 05/31/17 05/31/17 05/31/17 13:00 13:10 13:20 Temperature Pulse Rate 88 81 83 Respiratory 16 17 13 Rate Blood Pressure 142/108 142/108 139/74 O2 Sat by Pulse 92 95 97 Oximetry 05/31/17 05/31/17 05/31/17 13:30 13:40 13:50 Temperature Pulse Rate 80 82 79 Respiratory 22 16 21 Rate Blood Pressure 139/74 139/74 139/74 O2 Sat by Pulse 95 96 94 Oximetry 05/31/17 05/31/17 05/31/17 14:00 14:10 14:20 Temperature Pulse Rate 75 80 75 Respiratory 19 20 18 Rate Blood Pressure 139/74 130/68 130/68 O2 Sat by Pulse 94 94 93 Oximetry 05/31/17 14:30 Temperature Pulse Rate 73 Respiratory 15 Rate Blood Pressure 130/68 O2 Sat by Pulse 91 Oximetry Constitutional: no acute distress, alert, other (muscular well-built) ENT: other (severely crowded oropharynx Mallampati class IV) Neck: supple, no JVD Ascultation: Bilateral: clear Cardiovascular: regular rate and rhythm Gastrointestinal: normoactive bowel sounds, soft, non-tender Integumentary: normal Extremities: other (EKOS catheter) Neurologic: normal mental status, non-focal exam CBC and BMP: 05/31/17 03:20 05/31/17 03:20 ABG, PT/INR, D-dimer: PT/INR, D-dimer PT 15.0 Sec. (12.2-14.9) H 05/30/17 11:14 INR 1.12 (0.87-1.13) 05/30/17 11:14 D-Dimer > 70922 ng/mlDDU (0-234) H 05/29/17 01:04 Abnormal lab findings: Abnormal Labs 05/29/17 05/29/17 05/29/17 00:58 00:58 01:04 RDW Lymph % (Auto) 38.8 H [place] % (Auto) 10.8 H [place] # 1.0 H PT APTT Fibrinogen D-Dimer > 63668 H Heparin Anti-Xa Level Sodium Chloride NT-Pro-B Natriuret Pep 2078 H 05/30/17 05/30/17 05/30/17 11:14 11:14 15:42 RDW 13.0 L 13.0 L Lymph % (Auto) [place] % (Auto) 9.5 H 9.6 H [place] # PT 15.0 H APTT 198.0 H* Fibrinogen D-Dimer Heparin Anti-Xa Level Sodium Chloride NT-Pro-B Natriuret Pep 05/30/17 05/30/17 05/30/17 15:42 21:15 21:15 RDW 12.9 L Lymph % (Auto) [place] % (Auto) 8.9 H [place] # PT APTT Fibrinogen 526 H 532 H D-Dimer Heparin Anti-Xa Level 0.26 L Sodium Chloride NT-Pro-B Natriuret Pep 05/31/17 05/31/17 05/31/17 03:20 03:20 03:20 RDW 12.9 L Lymph % (Auto) [place] % (Auto) 10.9 H [place] # PT APTT Fibrinogen 532 H D-Dimer Heparin Anti-Xa Level 0.19 L Sodium 135 L Chloride 97.5 L NT-Pro-B Natriuret Pep
--- NOTE | 2017-05-31 18:40 | Progress Note ---
Assessment and Plan Assessment and plan: 66 YO Male with Varicose veins, Superficial thrombophlebitis presents to ED for evaluation. Pt states that he has experienced shortness of breath for the past 1 month with worsening symptoms over the past 10 days. the patient was diagnosed with Right -sided superficial thrombophlebitis of his greater saphenous vein 3 weeks ago. Pt acknowledges chest discomfort and shortness of breath on exertion as well as deep breathing. Pt states that he now has shortness of breath with chest discomfort when he walks, and only able to walk less than 30 feet without stopping due to shortness of breath. Pt denies fever, chills, Palpitations, NVD, Syncope, Hematemesis, hematuria, hematochezia, melena, or recent ill contacts. Pt seen and evaluated in ED and found to have right heart strain and CT Angio chest reveals bilateral PE. IR consulted in ED for EKOS therapy. Pt admitted to telemetry and placed on heparin drip. (1) Subacute massive pulmonary embolism with heart strain Therapeutic Anticoagulation with heparin drip, EKOS initiated s.p thrombolytic therapy, supplemental oxygen, nebulizer therpay, pain control (2) Acute Diastolic CHF (congestive heart failure) Suspect secondary to right heart strain and PE, Echo, treat submassive PE (3) Acute respiratory failure supplemental oxygen, nebs, incentive spirometry, supportive care, treat PE. (4) Acute Pulmonary Hypertension Secondary to Pulmonary Embolism Anticipate improvement following thrombolysis (5) DVT prophylaxis Current Visit: Yes Status: Acute The high probability of a clinically significant, sudden or life threatening deterioration of the [pulmonary] system(s) required my full and direct attention , intervention and personal management. The aggregate critical care time was [35 ] minutes. This time is in addition to time spent performing reported procedures but includes the following: [x] Data Review and interpretation [x] Patient assessment and monitoring of vital signs [x] Documentation [x] Medication orders and management History Interval history: Patient seen and examined, lying comfortable in the ICU, denies any chest pain, nausea, vomiting. Abdominal pain resolved Hospitalist Physical - Physical exam Narrative exam: General appearance: Present: in no acute distress - EENT Eyes: Present: PERRL ENT: hearing intact, clear oral mucosa - Neck Neck: Present: supple, normal ROM - Respiratory Respiratory effort: normal Respiratory: bilateral: diminished - Cardiovascular Heart Sounds: Present: S1 & S2. Absent: rub, click - Extremities Extremities: pulses symmetrical, No edema Extremity abnormal: edema, erythema, tenderness, other (RLE ) Peripheral Pulses: within normal limits - Abdominal General gastrointestinal: Present: soft, non-tender, non-distended, normal bowel sounds Male genitourinary: Present: normal - Integumentary Integumentary: Present: clear, warm, dry - Musculoskeletal Musculoskeletal: gait normal, strength equal bilaterally - Psychiatric Psychiatric: appropriate mood/affect, intact judgment & insight - Neurologic Neurologic: CNII-XII intact, moves all extremities - Constitutional Vitals: Temp Pulse Resp BP Pulse Ox 97.8 F 84 21 130/83 95 05/31/17 17:00 05/31/17 17:41 05/31/17 17:41 05/31/17 17:41 05/31/17 17:41 General appearance: Present: mild distress Results - Labs CBC & Chem 7: 05/31/17 03:20 06/01/17 03:03 Labs: Laboratory Last Values WBC 6.9 K/mm3 (4.5-11.0) 05/31/17 03:20 RBC 4.45 M/mm3 (3.65-5.03) 05/31/17 03:20 Hgb 13.1 gm/dl (11.8-15.2) 05/31/17 03:20 Hct 39.2 % (35.5-45.6) 05/31/17 03:20 MCV 88 fl (84-94) 05/31/17 03:20 MCH 30 pg (28-32) 05/31/17 03:20 MCHC 34 % (32-34) 05/31/17 03:20 RDW 12.9 % (13.2-15.2) L 05/31/17 03:20 Plt Count 145 K/mm3 (140-440) 05/31/17 03:20 Lymph % (Auto) 24.9 % (13.4-35.0) 05/31/17 03:20 [place] % (Auto) 10.9 % (0.0-7.3) H 05/31/17 03:20 Eos % (Auto) 2.3 % (0.0-4.3) 05/31/17 03:20 Baso % (Auto) 0.5 % (0.0-1.8) 05/31/17 03:20 Lymph # 1.7 K/mm3 (1.2-5.4) 05/31/17 03:20 [place] # 0.8 K/mm3 (0.0-0.8) 05/31/17 03:20 Eos # 0.2 K/mm3 (0.0-0.4) 05/31/17 03:20 Baso # 0.0 K/mm3 (0.0-0.1) 05/31/17 03:20 Seg Neutrophils % 61.4 % (40.0-70.0) 05/31/17 03:20 Seg Neutrophils # 4.2 K/mm3 (1.8-7.7) 05/31/17 03:20 PT 15.0 Sec. (12.2-14.9) H 05/30/17 11:14 INR 1.12 (0.87-1.13) 05/30/17 11:14 APTT 198.0 Sec. (24.2-36.6) H* 05/30/17 11:14 Fibrinogen 532 mg/dl (211-480) H 05/31/17 03:20 D-Dimer > 96329 ng/mlDDU (0-234) H 05/29/17 01:04 Heparin Anti-Xa Level 0.19 U.I./ml (0.3-0.7) L 05/31/17 03:20 Sodium 135 mmol/L (137-145) L 05/31/17 03:20 Potassium 4.3 mmol/L (3.6-5.0) 05/31/17 03:20 Chloride 97.5 mmol/L (98-107) L 05/31/17 03:20 Carbon Dioxide 24 mmol/L (22-30) 05/31/17 03:20 Anion Gap 18 mmol/L 05/31/17 03:20 BUN 14 mg/dL (9-20) 05/31/17 03:20 Creatinine 1.0 mg/dL (0.8-1.5) 05/31/17 03:20 Estimated GFR > 60 ml/min 05/31/17 03:20 BUN/Creatinine Ratio 14 % 05/31/17 03:20 Glucose 96 mg/dL (75-100) 05/31/17 03:20 Calcium 8.4 mg/dL (8.4-10.2) 05/31/17 03:20 Troponin T < 0.010 ng/mL (0.00-0.029) 05/29/17 08:07 NT-Pro-B Natriuret Pep 2078 pg/mL (0-900) H 05/29/17 00:58 Blood Type B NEGATIVE 05/30/17 11:14 Antibody Screen Negative 05/30/17 11:14
[2017-06-01 03:44] LABS: Anion Gap 18 mmol/L; BUN/Creatinine Ratio 11; Blood Urea Nitrogen 11 mg/dL (9-20); Calcium 8.7 mg/dL (8.4-10.2); Carbon Dioxide 24 mmol/L (22-30); Chloride 98.7 mmol/L (98-107); Glucose 101 mg/dL (75-100); Sodium 137 mmol/L (137-145)
--- NOTE | 2017-06-01 09:53 | Progress Note ---
Assessment and Plan Assessment and plan: 66 YO Male with Varicose veins, Superficial thrombophlebitis presents to ED for evaluation. Pt states that he has experienced shortness of breath for the past 1 month with worsening symptoms over the past 10 days. the patient was diagnosed with Right -sided superficial thrombophlebitis of his greater saphenous vein 3 weeks ago. Pt acknowledges chest discomfort and shortness of breath on exertion as well as deep breathing. Pt states that he now has shortness of breath with chest discomfort when he walks, and only able to walk less than 30 feet without stopping due to shortness of breath. Pt denies fever, chills, Palpitations, NVD, Syncope, Hematemesis, hematuria, hematochezia, melena, or recent ill contacts. Pt seen and evaluated in ED and found to have right heart strain and CT Angio chest reveals bilateral PE. IR consulted in ED for EKOS therapy. Pt admitted to telemetry and placed on heparin drip. (1) Subacute massive pulmonary embolism with heart strain Therapeutic Anticoagulation with heparin drip, EKOS now off, s.p thrombolytic therapy, supplemental oxygen, nebulizer therapy, pain control Transitioned to Eliquis (2) Acute Diastolic CHF (congestive heart failure) Suspect secondary to right heart strain and PE, Echo, treat submassive PE Repeat Echo in a few days per Pulmonary (3) Acute respiratory failure With Hypoxia supplemental oxygen, nebs, incentive spirometry, supportive care, treat PE. Start on NEBS. Had some Hypoxic events. will need home o2 eval prior to discharge (4) Acute Pulmonary Hypertension Secondary to Pulmonary Embolism Anticipate improvement following thrombolysis (5) Near syncope Check orthostatic, if positive may benefit from Judicious Fluids administration (6)DVT prophylaxis Current Visit: Yes Status: Acute TRANSFER TO Tele. Anticipate discharge in 1-2 days based on Pulmonary recommendation Case discussed with patient and Vascular in detail History Interval history: Patient seen and examined, Dizzing and short of breath following ambulation yesterday. Now resolved. Hospitalist Physical - Physical exam Narrative exam: General appearance: Present: in no acute distress - EENT Eyes: Present: PERRL ENT: hearing intact, clear oral mucosa - Neck Neck: Present: supple, normal ROM - Respiratory Respiratory effort: normal Respiratory: bilateral: diminished - Cardiovascular Heart Sounds: Present: S1 & S2. Absent: rub, click - Extremities Extremities: pulses symmetrical, No edema Extremity abnormal: edema, erythema, tenderness, other (RLE ) Peripheral Pulses: within normal limits - Abdominal General gastrointestinal: Present: soft, non-tender, non-distended, normal bowel sounds Male genitourinary: Present: normal - Integumentary Integumentary: Present: clear, warm, dry - Musculoskeletal Musculoskeletal: gait normal, strength equal bilaterally - Psychiatric Psychiatric: appropriate mood/affect, intact judgment & insight - Neurologic Neurologic: CNII-XII intact, moves all extremities - Constitutional Vitals: Temp Pulse Resp BP Pulse Ox 98.1 F 84 18 98/74 94 06/01/17 04:00 06/01/17 06:50 06/01/17 06:50 06/01/17 06:50 06/01/17 08:59 General appearance: Present: mild distress Results - Labs CBC & Chem 7: 05/31/17 03:20 06/01/17 03:03 Labs: Laboratory Last Values WBC 6.9 K/mm3 (4.5-11.0) 05/31/17 03:20 RBC 4.45 M/mm3 (3.65-5.03) 05/31/17 03:20 Hgb 13.1 gm/dl (11.8-15.2) 05/31/17 03:20 Hct 39.2 % (35.5-45.6) 05/31/17 03:20 MCV 88 fl (84-94) 05/31/17 03:20 MCH 30 pg (28-32) 05/31/17 03:20 MCHC 34 % (32-34) 05/31/17 03:20 RDW 12.9 % (13.2-15.2) L 05/31/17 03:20 Plt Count 145 K/mm3 (140-440) 05/31/17 03:20 Lymph % (Auto) 24.9 % (13.4-35.0) 05/31/17 03:20 [place] % (Auto) 10.9 % (0.0-7.3) H 05/31/17 03:20 Eos % (Auto) 2.3 % (0.0-4.3) 05/31/17 03:20 Baso % (Auto) 0.5 % (0.0-1.8) 05/31/17 03:20 Lymph # 1.7 K/mm3 (1.2-5.4) 05/31/17 03:20 [place] # 0.8 K/mm3 (0.0-0.8) 05/31/17 03:20 Eos # 0.2 K/mm3 (0.0-0.4) 05/31/17 03:20 Baso # 0.0 K/mm3 (0.0-0.1) 05/31/17 03:20 Seg Neutrophils % 61.4 % (40.0-70.0) 05/31/17 03:20 Seg Neutrophils # 4.2 K/mm3 (1.8-7.7) 05/31/17 03:20 PT 15.0 Sec. (12.2-14.9) H 05/30/17 11:14 INR 1.12 (0.87-1.13) 05/30/17 11:14 APTT 198.0 Sec. (24.2-36.6) H* 05/30/17 11:14 Fibrinogen 532 mg/dl (211-480) H 05/31/17 03:20 D-Dimer > 67953 ng/mlDDU (0-234) H 05/29/17 01:04 Heparin Anti-Xa Level 0.19 U.I./ml (0.3-0.7) L 05/31/17 03:20 Sodium 137 mmol/L (137-145) 06/01/17 03:03 Potassium 4.0 mmol/L (3.6-5.0) 06/01/17 03:03 Chloride 98.7 mmol/L (98-107) 06/01/17 03:03 Carbon Dioxide 24 mmol/L (22-30) 06/01/17 03:03 Anion Gap 18 mmol/L 06/01/17 03:03 BUN 11 mg/dL (9-20) 06/01/17 03:03 Creatinine 1.0 mg/dL (0.8-1.5) 06/01/17 03:03 Estimated GFR > 60 ml/min 06/01/17 03:03 BUN/Creatinine Ratio 11 % 06/01/17 03:03 Glucose 101 mg/dL (75-100) H 06/01/17 03:03 Calcium 8.7 mg/dL (8.4-10.2) 06/01/17 03:03 Troponin T < 0.010 ng/mL (0.00-0.029) 05/29/17 08:07 NT-Pro-B Natriuret Pep 2078 pg/mL (0-900) H 05/29/17 00:58 Blood Type B NEGATIVE 05/30/17 11:14 Antibody Screen Negative 05/30/17 11:14
[2017-06-01] MEDS: ELIQUIS PO SCH ×2 (13:05→21:10)
--- NOTE | 2017-06-01 15:22 | Progress Note ---
Assessment and Plan Imp: 1. 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 Acute cor pulmonale/pulm HTN 2/2 #1 Rec: 1. Agree with Eliquis 6-12 months 2. Repeat Echo could be done as an outpatient 3. Agree with transfer out of ICU Plan of care reviewed with patient, he understands/agrees Subjective Date of service: 06/01/17 Principal diagnosis: Acute PE Interval history: No events. Awake, alert. On RA. No SOB, chest pain. Active Medications Acetaminophen (Tylenol) 650 mg PO Q4H PRN PRN Reason: Pain MILD(1-3)/Fever >100.5/FLORES Acetaminophen/Hydrocodone Bitart ([place] 5/325) 2 each PO Q6H PRN PRN Reason: Pain, Moderate (4-6) Last Admin: 05/31/17 18:44 Dose: 2 each Albuterol (Proventil) 2.5 mg IH Q4HRT PRN PRN Reason: Shortness Of Breath Apixaban (Eliquis) 10 mg PO Q12HR RAJANI PRN Reason: Protocol Last Admin: 06/01/17 13:05 Dose: 10 mg Bisacodyl (Dulcolax) 10 mg [place] QDAY PRN PRN Reason: Constipation unrelieved by MOM Sodium Chloride (Nacl 0.9% 1000 Ml) 1,000 mls @ 30 mls/hr IV DIRECT RAJANI Magnesium Hydroxide (Milk Of Magnesia) 30 ml PO Q4H PRN PRN Reason: Constipation Morphine Sulfate (Morphine) 2 mg IV Q4H PRN PRN Reason: Pain, Moderate (4-6) Morphine Sulfate (Morphine) 4 mg IV Q4H PRN PRN Reason: Pain , Severe (7-10) Ondansetron HCl (Zofran) 4 mg IV Q8H PRN PRN Reason: Nausea And Vomiting Objective Vital Signs - 12hr 06/01/17 06/01/17 06/01/17 03:30 03:40 03:50 Temperature Pulse Rate 82 81 85 Respiratory 19 18 18 Rate Blood Pressure 113/73 113/73 113/73 O2 Sat by Pulse 89 90 90 Oximetry 06/01/17 06/01/17 06/01/17 04:00 04:10 04:20 Temperature 98.1 F Pulse Rate 83 82 81 Respiratory 17 19 19 Rate Blood Pressure 111/78 113/73 113/73 O2 Sat by Pulse 87 92 90 Oximetry 06/01/17 06/01/17 06/01/17 04:30 04:40 04:50 Temperature Pulse Rate 81 81 82 Respiratory 13 20 16 Rate Blood Pressure 113/73 113/73 113/73 O2 Sat by Pulse 92 92 93 Oximetry 06/01/17 06/01/17 06/01/17 05:00 05:10 05:20 Temperature Pulse Rate 81 79 86 Respiratory 15 19 16 Rate Blood Pressure 98/74 98/74 98/74 O2 Sat by Pulse 93 93 93 Oximetry 06/01/17 06/01/17 06/01/17 05:30 05:40 05:50 Temperature Pulse Rate 85 83 89 Respiratory 22 19 15 Rate Blood Pressure 98/74 98/74 98/74 O2 Sat by Pulse 92 94 94 Oximetry 06/01/17 06/01/17 06/01/17 06:00 06:10 06:20 Temperature Pulse Rate 91 H 83 78 Respiratory 15 20 19 Rate Blood Pressure 98/74 98/74 98/74 O2 Sat by Pulse 92 91 89 Oximetry 06/01/17 06/01/17 06/01/17 06:30 06:40 06:50 Temperature Pulse Rate 80 78 84 Respiratory 18 17 18 Rate Blood Pressure 98/74 98/74 98/74 O2 Sat by Pulse 89 92 90 Oximetry 06/01/17 06/01/17 06/01/17 07:00 08:00 08:59 Temperature Pulse Rate 79 79 Respiratory 15 14 Rate Blood Pressure 103/49 111/58 O2 Sat by Pulse 91 93 94 Oximetry 06/01/17 06/01/17 06/01/17 09:00 10:00 11:00 Temperature Pulse Rate 81 90 88 Respiratory 20 20 20 Rate Blood Pressure 120/81 121/72 121/72 O2 Sat by Pulse 96 91 92 Oximetry 06/01/17 12:55 Temperature 97.7 F Pulse Rate Respiratory Rate Blood Pressure O2 Sat by Pulse Oximetry Constitutional: no acute distress, alert, other (muscular well-built) ENT: other (severely crowded oropharynx Mallampati class IV) Neck: supple, no JVD Effort: normal Ascultation: Bilateral: clear Cardiovascular: regular rate and rhythm (no mrg) Gastrointestinal: normoactive bowel sounds, soft, non-tender Integumentary: normal Extremities: no cyanosis, pink and warm, edema (1+ bilateral pedal edema) Neurologic: normal mental status, non-focal exam CBC and BMP: 05/31/17 03:20 06/01/17 03:03 ABG, PT/INR, D-dimer: PT/INR, D-dimer PT 15.0 Sec. (12.2-14.9) H 05/30/17 11:14 INR 1.12 (0.87-1.13) 05/30/17 11:14 D-Dimer > 20921 ng/mlDDU (0-234) H 05/29/17 01:04 Abnormal lab findings: Abnormal Labs 05/29/17 05/29/17 05/29/17 00:58 00:58 01:04 RDW Lymph % (Auto) 38.8 H [place] % (Auto) 10.8 H [place] # 1.0 H PT APTT Fibrinogen D-Dimer > 86565 H Heparin Anti-Xa Level Sodium Chloride Glucose NT-Pro-B Natriuret Pep 8 H 05/30/17 05/30/17 05/30/17 11:14 11:14 15:42 RDW 13.0 L 13.0 L Lymph % (Auto) [place] % (Auto) 9.5 H 9.6 H [place] # PT 15.0 H APTT 198.0 H* Fibrinogen D-Dimer Heparin Anti-Xa Level Sodium Chloride Glucose NT-Pro-B Natriuret Pep 05/30/17 05/30/17 05/30/17 15:42 21:15 21:15 RDW 12.9 L Lymph % (Auto) [place] % (Auto) 8.9 H [place] # PT APTT Fibrinogen 526 H 532 H D-Dimer Heparin Anti-Xa Level 0.26 L Sodium Chloride Glucose NT-Pro-B Natriuret Pep 05/31/17 05/31/17 05/31/17 03:20 03:20 03:20 RDW 12.9 L Lymph % (Auto) [place] % (Auto) 10.9 H [place] # PT APTT Fibrinogen 532 H D-Dimer Heparin Anti-Xa Level 0.19 L Sodium 135 L Chloride 97.5 L Glucose NT-Pro-B Natriuret Pep 06/01/17 03:03 RDW Lymph % (Auto) [place] % (Auto) [place] # PT APTT Fibrinogen D-Dimer Heparin Anti-Xa Level Sodium Chloride Glucose 101 H NT-Pro-B Natriuret Pep Chest x-ray: report reviewed, image reviewed CT scan - chest: report reviewed, image reviewed
[2017-06-01] MEDS ORDERED: COLACE PO PRN (19:53)
[2017-06-02 06:05] LABS: Hematocrit 39.9 % (35.5-45.6); Hemoglobin 13.2 gm/dl (11.8-15.2)
[2017-06-02 06:23] LABS: Anion Gap 15 mmol/L; BUN/Creatinine Ratio 10; Blood Urea Nitrogen 12 mg/dL (9-20); Carbon Dioxide 29 mmol/L (22-30); Chloride 99.3 mmol/L (98-107); Glucose 100 mg/dL (75-100); Potassium 4.6 mmol/L (3.6-5.0); Sodium 139 mmol/L (137-145)
[2017-06-02] MEDS: ELIQUIS PO SCH (10:28)
--- NOTE | 2017-06-02 11:30 | Discharge Summary ---
Providers - Providers Date of Admission: 05/29/17 11:38 Attending physician: CHELSIE MADDEN MD 05/29/17 12:22 Consult to Physician [CONS] Urgent Consulting Provider: MARTHA FISH Reason For Exam: submassive pulmonary embolism Notified:: paged 05/30/17 11:05 Consult to Physician [CONS] Routine Consulting Provider: COTY GILES Reason For Exam: SUBMASSIVE PE Place consult to:: dR. Godfrey Notified:: yes Hospitalization Reason for admission: PE Condition: Stable Hospital course: 66 YO Male with Varicose veins, Superficial thrombophlebitis presents to ED for evaluation. Pt states that he has experienced shortness of breath for the past 1 month with worsening symptoms over the past 10 days. the patient was diagnosed with Right -sided superficial thrombophlebitis of his greater saphenous vein 3 weeks ago. Pt acknowledges chest discomfort and shortness of breath on exertion as well as deep breathing. Pt states that he now has shortness of breath with chest discomfort when he walks, and only able to walk less than 30 feet without stopping due to shortness of breath. Pt denies fever, chills, Palpitations, NVD, Syncope, Hematemesis, hematuria, hematochezia, melena, or recent ill contacts. Pt seen and evaluated in ED and found to have right heart strain and CT Angio chest reveals bilateral PE. IR consulted in ED for EKOS therapy. PT admitted to telemetry and placed on heparin drip. And subsequently converted to Eliquis, He did have an episode of dizziness which improved with fluids. 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 Compression stockings may also be beneficial. Patient is to have a repeat echocardiogram in 2 weeks with pulmonary. Condition at this time is stable patient is to follow with vascular surgery outpatient. (1) Subacute massive pulmonary embolism with heart strain (2) Acute Diastolic CHF (congestive heart failure) (3) Acute respiratory failure With Hypoxia (4) Acute Pulmonary Hypertension Secondary to Pulmonary Embolism (5) Near syncope Disposition: - TO HOME OR SELFCARE Time spent for discharge: 35 mins Core Measure Documentation - Palliative Care Palliative Care/ Comfort Measures: Not Applicable - Core Measures Any of the following diagnoses?: none - VTE Discharge Requirements Deep Vein Thrombosis/Pulmonary Embolism Present on Admission: Yes Has pt received <5 days of overlap therapy or INR<2.0: Yes Anticoagulant overlap therapy prescribed at discharge: Yes Exam - Physical Exam Narrative exam: VITAL SIGNS: Reviewed. GENERAL: The patient appeared well nourished and normally developed. Vital signs as documented. HEAD: No signs of head trauma. EYES: Pupils are equal. Extraocular motions intact. EARS: Hearing grossly intact. MOUTH: Oropharynx is normal. NECK: No adenopathy, no JVD. CHEST: Chest with clear breath sounds bilaterally. No wheezes, rales, or rhonchi. CARDIAC: Regular rate and rhythm. S1 and S2, without murmurs, gallops, or rubs. VASCULAR: No Edema. Peripheral pulses normal and equal in all extremities. ABDOMEN: Soft, without detectable tenderness. No sign of distention. No rebound or guarding, and no masses palpated. Bowel Sounds normal. MUSCULOSKELETAL: Good range of motion of all major joints. Extremities without clubbing, cyanosis or edema. NEUROLOGIC EXAM: Alert and oriented x 3. No focal sensory or strength deficits. Speech normal. Follows commands. PSYCHIATRIC: Mood normal. SKIN: No rash or lesions. - Constitutional Vitals: Temp Pulse Resp BP Pulse Ox 98.4 F 73 20 113/58 96 06/02/17 08:01 06/02/17 08:01 06/02/17 08:01 06/02/17 08:01 06/02/17 08:01 Plan Activity: advance as tolerated, fall precautions Diet: low cholesterol Additional Instructions: Repeat echocardiogram outpatient in 1 week Follow up with: PARKER WILDER MD [Other] - 3-5 Days MARTHA FISH MD [Staff Physician] - 14 Days KIRSTIN GODFREY MD [Staff Physician] - 14 Days Forms: Work/School Release Form Prescriptions: Apixaban [Eliquis] 10 mg PO Q12HR #14 tablet Apixaban [Eliquis] 5 mg PO BID 30 Days tablet HYDROcodone/APAP 5-325 [[place] 5-325 mg TAB] 2 each PO Q6H PRN #10 tablet PRN Reason: Pain, Moderate (4-6)
[2017-06-02 12:04] VITALS: BP 118/78
--- NOTE | 2017-06-02 13:03 | Event Note ---
Date: 06/02/17 Pt s/p EKOS for PE. Currently on Eliquis. Consult Case Management for outpt Eliquis cards for 1st month free, and discount Rx card. Pt to be on anticoagulation 6-12 months per Pulm. Pt to f/u in our office in 2 wks. Pt to f/u with pulm for cor pulm/Pulm htn.
--- NOTE | 2017-06-02 13:53 | Progress Note ---
Assessment and Plan Imp: 1. 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 Acute cor pulmonale/pulm HTN 2/2 #1 Rec: 1. Agree with Yemi 6-12 months 2. Repeat Echo could be done as an outpatient 3. Agree with d/c; f/u with us 1-2 weeks, sooner prn; he has our office info Plan of care reviewed with patient, he understands/agrees Subjective Date of service: 06/02/17 Principal diagnosis: Acute PE Interval history: No events. Awake, alert. On RA. No SOB, chest pain. Active Medications Acetaminophen (Tylenol) 650 mg PO Q4H PRN PRN Reason: Pain MILD(1-3)/Fever >100.5/FLORES Last Admin: 06/01/17 19:40 Dose: 650 mg Acetaminophen/Hydrocodone Bitart ([place] 5/325) 2 each PO Q6H PRN PRN Reason: Pain, Moderate (4-6) Last Admin: 05/31/17 18:44 Dose: 2 each Albuterol (Proventil) 2.5 mg IH Q4HRT PRN PRN Reason: Shortness Of Breath Apixaban (Eliquis) 10 mg PO Q12HR RAJANI PRN Reason: Protocol Last Admin: 06/02/17 10:28 Dose: 10 mg Bisacodyl (Dulcolax) 10 mg [place] QDAY PRN PRN Reason: Constipation unrelieved by MOM Docusate Sodium (Colace) 100 mg PO BID PRN PRN Reason: Constipation Last Admin: 06/01/17 20:13 Dose: 100 mg Sodium Chloride (Nacl 0.9% 1000 Ml) 1,000 mls @ 30 mls/hr IV DIRECT RAJANI Magnesium Hydroxide (Milk Of Magnesia) 30 ml PO Q4H PRN PRN Reason: Constipation Last Admin: 06/01/17 19:40 Dose: 30 ml Morphine Sulfate (Morphine) 2 mg IV Q4H PRN PRN Reason: Pain, Moderate (4-6) Morphine Sulfate (Morphine) 4 mg IV Q4H PRN PRN Reason: Pain , Severe (7-10) Ondansetron HCl (Zofran) 4 mg IV Q8H PRN PRN Reason: Nausea And Vomiting Objective Vital Signs - 12hr 06/02/17 06/02/1706/02/17 03:58 08:01 10:00 Temperature 98.4 F 98.4 F Pulse Rate 74 73 73 Respiratory 17 20 Rate Blood Pressure 102/67 Blood Pressure 113/58 [Left] O2 Sat by Pulse 95 96 97 Oximetry 06/02/17 12:03 Temperature 97.4 F L Pulse Rate 73 Respiratory 20 Rate Blood Pressure Blood Pressure 118/78 [Left] O2 Sat by Pulse 95 Oximetry Constitutional: no acute distress, alert, other (muscular well-built) ENT: other (severely crowded oropharynx Mallampati class IV) Neck: supple Effort: normal Ascultation: Bilateral: clear Cardiovascular: regular rate and rhythm (no mrg) Gastrointestinal: normoactive bowel sounds, soft, non-tender Integumentary: normal Extremities: no cyanosis, pink and warm, edema (1+ bilateral pedal edema) Neurologic: normal mental status, non-focal exam, pupils equal and round, CN II- XII normal Psychiatric: mood appropriate, affect normal CBC and BMP: 06/02/17 04:49 06/02/17 04:49 ABG, PT/INR, D-dimer: PT/INR, D-dimer PT 15.0 Sec. (12.2-14.9) H 05/30/17 11:14 INR 1.12 (0.87-1.13) 05/30/17 11:14 D-Dimer > 94903 ng/mlDDU (0-234) H 05/29/17 01:04 Abnormal lab findings: Abnormal Labs 05/29/17 05/29/17 05/29/17 00:58 00:58 01:04 RDW Lymph % (Auto) 38.8 H [place] % (Auto) 10.8 H [place] # 1.0 H PT APTT Fibrinogen D-Dimer > 56457 H Heparin Anti-Xa Level Sodium Chloride Glucose NT-Pro-B Natriuret Pep 8 H 05/30/17 05/30/17 05/30/17 11:14 11:14 15:42 RDW 13.0 L 13.0 L Lymph % (Auto) [place] % (Auto) 9.5 H 9.6 H [place] # PT 15.0 H APTT 198.0 H* Fibrinogen D-Dimer Heparin Anti-Xa Level Sodium Chloride Glucose NT-Pro-B Natriuret Pep 05/30/17 05/30/17 05/30/17 15:42 21:15 21:15 RDW 12.9 L Lymph % (Auto) [place] % (Auto) 8.9 H [place] # PT APTT Fibrinogen 526 H 532 H D-Dimer Heparin Anti-Xa Level 0.26 L Sodium Chloride Glucose NT-Pro-B Natriuret Pep 05/31/17 05/31/17 05/31/17 03:20 03:20 03:20 RDW 12.9 L Lymph % (Auto) [place] % (Auto) 10.9 H [place] # PT APTT Fibrinogen 532 H D-Dimer Heparin Anti-Xa Level 0.19 L Sodium 135 L Chloride 97.5 L Glucose NT-Pro-B Natriuret Pep 06/01/17 03:03 RDW Lymph % (Auto) [place] % (Auto) [place] # PT APTT Fibrinogen D-Dimer Heparin Anti-Xa Level Sodium Chloride Glucose 101 H NT-Pro-B Natriuret Pep Chest x-ray: report reviewed, image reviewed CT scan - chest: report reviewed, image reviewed
== END 2017-06-02 15:40 | disposition home or self-care (01) | DRG 175 ==
LOC: ED 00:33 → 4A 11:38 → CC1 05-30 11:11 → 4A 06-01 15:21
PROVIDERS: ADMIT Internal Medicine; ATTEND Internal Medicine
PROC: B31T1ZZ Fluoroscopy of Left Pulmonary Artery using Low Osmolar Contrast (ICD-10-PCS; principal; 2017-05-30)
PROC: B31S1ZZ Fluoroscopy of Right Pulmonary Artery using Low Osmolar Contrast (ICD-10-PCS; 2017-05-30)
PROC: 02HQ33Z Insertion of Infusion Device into Right Pulmonary Artery, Percutaneous Approach (ICD-10-PCS; 2017-05-30)
PROC: 02HR33Z Insertion of Infusion Device into Left Pulmonary Artery, Percutaneous Approach (ICD-10-PCS; 2017-05-30)
PROC: 3E05317 Introduction of Other Thrombolytic into Peripheral Artery, Percutaneous Approach (ICD-10-PCS; 2017-05-30)
PROC: 02PY33Z Removal of Infusion Device from Great Vessel, Percutaneous Approach (ICD-10-PCS; 2017-05-30)
DX: I26.99 Other pulmonary embolism without acute cor pulmonale (principal); I50.31 Acute diastolic (congestive) heart failure; J96.01 Acute respiratory failure with hypoxia; I82.403 Acute embolism and thrombosis of unspecified deep veins of lower extremity, bilateral; G47.30 Sleep apnea, unspecified; I27.20 Pulmonary hypertension, unspecified; Z88.8 Allergy status to other drugs, medicaments and biological substances
CPT/HCPCS: 36415; 37211; 71020; 71275; 80048; 83880; 84484; 85014; 85018; 85025; 85049; 85379; 85384; 85520; 85610; 85730; 86850; 86900; 86901; 93005; 93010; 93306; 93970; 94760; 96374; C1757; C1769; C1894; J1644; J2250; J2270; J2405; J2997; J3010; J7030; J7050; Q9967